=== PATIENT | female | born 2000 | race Caucasian/White ===

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

== ENCOUNTER 2019-01-03 19:17 | Emergency (ER) | payer BC, MEDICAID ==
[~2019-01-03] VITALS: Ht 162.6 cm; Wt 70.3 kg
[~2019-01-03 19:17] MED LIST changes: -CIPR-249 PO; -DICY10CA13 PO; -ZOFR4TAB16 PO
[2019-01-03 20:11] LABS: HEMATOCRIT 40.5 % (36.0-47.0); HEMOGLOBIN 13.4 g/dl (12.0-15.5); MEAN CORPUSCULAR HEMOGLOBIN 30.1 pg (27.0-33.0); MEAN CORPUSCULAR HGB CONC 33.1 g/dl (32.0-36.5); PLATELET COUNT, AUTOMATED 230 10^3/uL (150-450); RED BLOOD COUNT 4.45 10^6/uL (4.00-5.40); WHITE BLOOD COUNT 4.3 10^3/uL (4.0-10.0)
[2019-01-03 20:34] LABS: ALBUMIN 3.8 GM/DL (3.2-5.2); ALT/SGPT 18 U/L (12-78); BILIRUBIN,DIRECT < 0.1 MG/DL (0.0-0.2); BILIRUBIN,TOTAL 0.3 MG/DL (0.2-1.0); BLOOD UREA NITROGEN 9 MG/DL (7-18); CALCIUM LEVEL 8.7 MG/DL (8.5-10.1); CARBON DIOXIDE LEVEL 28 MEQ/L (21-32); CHLORIDE LEVEL 107 MEQ/L (98-107); CREATININE FOR GFR 0.86 MG/DL (0.55-1.30); GLUCOSE, FASTING 83 MG/DL (70-100); LIPASE 148 U/L (73-393); POTASSIUM SERUM 3.6 MEQ/L (3.5-5.1); SODIUM LEVEL 141 MEQ/L (136-145); TOTAL PROTEIN 7.4 GM/DL (6.4-8.2)
[2019-01-03 20:44] LABS: ATYPICAL LYMPH 5 % (0-5); BASOPHILS 1 % (0-4); EOSINOPHILS 5 % (0-5); LYMPHOCYTES 49 % (16-52); MONOCYTES 8 % (0-8); NEUTROPHILS 32 % (35-75); PLATELET ESTIMATE NORMAL (NORMAL)
[2019-01-03] MEDS ORDERED: ONDANSETRON 4MG/2ML VIAL (J2405) IV ONE (21:00)
[2019-01-03] MEDS ORDERED: NS 1,000 ML IV ONE (21:00)
[2019-01-03] MEDS ORDERED: DICYCLOMINE 10 MG CAP PO ONE (21:00)
[2019-01-03 23:46] VITALS: BP 103/52
[2019-01-03] MEDS ORDERED: ZOFR4TAB16 PO (23:53)
[2019-01-03] MEDS ORDERED: CIPR-249 PO (23:53)
[2019-01-03] MEDS ORDERED: DICY10CA13 PO (23:53)
[2019-01-04] MEDS ORDERED: CIPROFLOXACIN 500 MG TAB PO ONE
== END 2019-01-04 00:18 | disposition home or self-care (01) ==
LOC: M ED 19:17
DX: R10.84 Generalized abdominal pain (principal); R19.7 Diarrhea, unspecified; Z88.7 Allergy status to serum and vaccine
CPT/HCPCS: 80048; 80076; 81001; 83690; 84702; 85025; 96374; 99284; J2405

== ENCOUNTER → 2019-01-03 | Outpatient (REF) | payer BC, MEDICAID ==
[~2019-01-03] MED LIST: ACET-683 PO; CEFD300CAP PO; CIPR-249 PO; DICY10CA13 PO; ONDA4TAB6 PO; PREVTAB2 PO; ZOFR4TAB16 PO
[2019-01-03 19:53] LABS: BASO % 0.4 % (0.0-1.0); EOS # 0.2 10^3/uL (0.0-0.50); HEMATOCRIT 43.4 % (36.0-47.0); LYMPH # 1.5 10^3/uL (1.5-6.5); LYMPH % 28.2 % (24.0-44.0); MEAN CORPUSCULAR HEMOGLOBIN 29.9 pg (27.0-33.0); MEAN CORPUSCULAR HGB CONC 32.3 g/dl (32.0-36.5); MEAN CORPUSCULAR VOLUME 92.5 fl (80.0-96.0); MONO # 0.6 10^3/uL (0.0-0.8); MONO % 11.2 % (0.0-5.0); PLATELET COUNT, AUTOMATED 251 10^3/uL (150-450); RED BLOOD COUNT 4.69 10^6/uL (4.00-5.40); WHITE BLOOD COUNT 5.3 10^3/uL (4.0-10.0)
[2019-01-03 19:56] LABS: ALT/SGPT 18 U/L (12-78); AMYLASE 37 U/L (25-115); BILIRUBIN,TOTAL 0.4 MG/DL (0.2-1.0); BLOOD UREA NITROGEN 10 MG/DL (7-18); CARBON DIOXIDE LEVEL 29 MEQ/L (21-32); CHLORIDE LEVEL 107 MEQ/L (98-107); CREATININE FOR GFR 0.91 MG/DL (0.55-1.30); GLUCOSE, FASTING 90 MG/DL (70-100); LIPASE 122 U/L (73-393); POTASSIUM SERUM 4.2 MEQ/L (3.5-5.1); SODIUM LEVEL 140 MEQ/L (136-145); TOTAL PROTEIN 7.6 GM/DL (6.4-8.2)
== END ==
LOC: M LAB REF 19:14
PROVIDERS: ATTEND Physician Assistant Medical
DX: R10.9 Unspecified abdominal pain (principal)

== ENCOUNTER 2019-03-11 17:04 | Emergency (ER) | payer BC, MEDICAID ==
[~2019-03-11] VITALS: Ht 162.6 cm; Wt 73.2 kg
[~2019-03-11 17:04] MED LIST changes: +CIPR-249 PO; +DICY10CA13 PO; +ZOFR4TAB16 PO
[2019-03-11] MEDS ORDERED: MIRE1IUD (17:12)
--- NOTE | 2019-03-11 18:17 | REPVR ---
PROCEDURE INFORMATION: Exam: CT Head Without Contrast Exam date and time: 03/11/2019 6:01 PM Clinical history: 18 years old, female; Injury or trauma; Fall; Initial encounter; Blunt trauma (contusions or hematomas); Consciousness not specified; Additional info: Thrown off horse, cervical pain, + loc TECHNIQUE: Imaging protocol: Computed tomography of the head without contrast. Radiation optimization: All CT scans at this facility use at least one of these dose optimization techniques: automated exposure control; mA and/or kV adjustment per patient size (includes targeted exams where dose is matched to clinical indication); or iterative reconstruction. COMPARISON: CT Head without contrast 02/27/2018 7:40 AM FINDINGS: Brain: Normal. No hemorrhage. Unremarkable white matter. No mass effect. Ventricles: Normal. No ventriculomegaly. Bones/joints: Unremarkable. No acute fracture. Sinuses: Visualized sinuses are unremarkable. No fluid levels. Mastoid air cells: Visualized mastoid air cells are well aerated. Soft tissues: Unremarkable. IMPRESSION: No acute intracranial abnormality. Electronically signed by: Valente Hernandez On 03/11/2019 18:17:21 PM
--- NOTE | 2019-03-11 18:20 | REPVR ---
PROCEDURE INFORMATION: Exam: CT Cervical Spine Without Contrast Exam date and time: 03/11/2019 6:01 PM Clinical history: 18 years old, female; Injury or trauma; Fall; Initial encounter; Blunt trauma; Additional info: Thrown off horse, cervical pain TECHNIQUE: Imaging protocol: Computed tomography images of the cervical spine without contrast. Radiation optimization: All CT scans at this facility use at least one of these dose optimization techniques: automated exposure control; mA and/or kV adjustment per patient size (includes targeted exams where dose is matched to clinical indication); or iterative reconstruction. COMPARISON: No relevant prior studies available. FINDINGS: Vertebrae: Reversal of normal cervical lordosis which may be positional. Clinical correlation to exclude changes secondary to muscular spasm as suggested. Discs/Spinal canal/Neural foramina: No spinal stenosis. No neural foraminal narrowing. Soft tissues: See Vertebrae Finding. Otherwise unremarkable. Lungs: Lung apices are normal. IMPRESSION: 1. Reversal of normal cervical lordosis which may be positional. Clinical correlation to exclude changes secondary to muscular spasm as suggested. 2. Otherwise unremarkable. Electronically signed by: Valente Hernandez On 03/11/2019 18:20:38 PM
[2019-03-11] MEDS ORDERED: NS 1,000 ML IV ONE (19:15)
[2019-03-11] MEDS ORDERED: KETOROLAC 30 MG/ML VIAL (J1885) IV ONE (19:15)
[2019-03-11 19:21] LABS: HEMATOCRIT 42.8 % (36.0-47.0); MEAN CORPUSCULAR HEMOGLOBIN 30.1 pg (27.0-33.0); MEAN CORPUSCULAR HGB CONC 32.7 g/dl (32.0-36.5); PLATELET COUNT, AUTOMATED 286 10^3/uL (150-450); RED BLOOD COUNT 4.65 10^6/uL (4.00-5.40); WHITE BLOOD COUNT 11.9 10^3/uL (4.0-10.0)
[2019-03-11] MEDS ORDERED: ISOVUE-370 76% 100ML VIAL (Q9967) As Ordered ONE (20:11)
--- NOTE | 2019-03-11 20:37 | REPVR ---
PROCEDURE INFORMATION: Exam: CT Maxillofacial Without Contrast Exam date and time: 03/11/2019 8:22 PM Clinical history: 18 years old, female; Injury or trauma; Fall; Initial encounter; Blunt trauma (contusions or hematomas); Jaw; Right TECHNIQUE: Imaging protocol: Computed tomography images of the face without contrast. Radiation optimization: All CT scans at this facility use at least one of these dose optimization techniques: automated exposure control; mA and/or kV adjustment per patient size (includes targeted exams where dose is matched to clinical indication); or iterative reconstruction. COMPARISON: No relevant prior studies available. FINDINGS: Orbits: Orbits are normal. Globes are unremarkable. Sinuses: Mild inflammatory changes right maxillary sinus. Bones/joints: No acute fracture. Soft tissues: Unremarkable. IMPRESSION: No acute findings. Electronically signed by: Valente Hernandez On 03/11/2019 20:37:11 PM
--- NOTE | 2019-03-11 20:40 | REPVR ---
PROCEDURE INFORMATION: Exam: CT Abdomen And Pelvis With Contrast Exam date and time: 03/11/2019 8:22 PM Clinical history: 18 years old, female; Injury or trauma; Fall; Initial encounter; Blunt; Generalized TECHNIQUE: Imaging protocol: Computed tomography of the abdomen and pelvis with intravenous contrast. Radiation optimization: All CT scans at this facility use at least one of these dose optimization techniques: automated exposure control; mA and/or kV adjustment per patient size (includes targeted exams where dose is matched to clinical indication); or iterative reconstruction. Contrast material: ISO 370; Contrast volume: 100 ml; Contrast route: IV; COMPARISON: No relevant prior studies available. FINDINGS: Liver: There is a diffuse decrease in hepatic parenchymal density, consistent with fatty infiltration. Gallbladder and bile ducts: Normal. No calcified stones. No ductal dilation. Pancreas: Normal. No ductal dilation. Spleen: Normal. No splenomegaly. Adrenals: Normal. No mass. Kidneys and ureters: Normal. No hydronephrosis. Stomach and bowel: There is increased feces throughout the colon consistent with constipation. Appendix: No evidence of appendicitis. Intraperitoneal space: Unremarkable. No free air. No significant fluid collection. Vasculature: Unremarkable. No abdominal aortic aneurysm. Lymph nodes: Unremarkable. No enlarged lymph nodes. Bladder: Unremarkable as visualized. Reproductive: Unremarkable as visualized. Bones/joints: Unremarkable. No acute fracture. Soft tissues: Unremarkable. IMPRESSION: 1. There is a diffuse decrease in hepatic parenchymal density, consistent with fatty infiltration. 2. There is increased feces throughout the colon consistent with constipation. Electronically signed by: Valente Hernandez On 03/11/2019 20:40:16 PM
[2019-03-11] MEDS ORDERED: ZOFR4TAB16 PO (22:11)
[2019-03-11] MEDS ORDERED: IBUP-1022 PO (22:11)
--- NOTE | 2019-03-11 22:14 | REPVR ---
PROCEDURE INFORMATION: Exam: CT Chest With Contrast Exam date and time: 03/11/19 (8:29pm) Clinical history: 18 year old female with chest pain. Trauma. TECHNIQUE: Imaging protocol: Computed tomography of the chest with intravenous contrast. Radiation optimization: All CT scans at this facility use at least one of these dose optimization techniques: automated exposure control; mA and/or kV adjustment per patient size (includes targeted exams where dose is matched to clinical indication); or iterative reconstruction. Contrast material: Iso 370 Contrast volume: 100 ml Contrast route: IV COMPARISON: Portable CXR of 02/27/18 FINDINGS: Lungs: Unremarkable. No consolidation. No masses. Pleural space: Unremarkable. No pneumothorax. No pleural effusions. Heart: Unremarkable. No cardiomegaly. No pericardial effusion. Aorta: Unremarkable. No aortic aneurysm. Lymph nodes: Unremarkable. No enlarged lymph nodes. Bones/joints: Unremarkable. No acute fracture. Soft tissues: Unremarkable. IMPRESSION: No acute findings. Electronically signed by: Carmen Lugo On 03/11/2019 22:14:13 PM
[2019-03-11 22:25] VITALS: BP 131/69
== END 2019-03-11 22:28 | disposition home or self-care (01) ==
LOC: M ED 17:04
DX: S09.90XA Unspecified injury of head, initial encounter (principal); S06.0X9A Concussion with loss of consciousness of unspecified duration, initial encounter; V80.010A Animal-rider injured by fall from or being thrown from horse in noncollision accident, initial encounter; Y92.828 Other wilderness area as the place of occurrence of the external cause; Y93.52 Activity, horseback riding; Y99.9 Unspecified external cause status; Z79.3 Long term (current) use of hormonal contraceptives; Z88.7 Allergy status to serum and vaccine; Z88.8 Allergy status to other drugs, medicaments and biological substances
CPT/HCPCS: 70450; 70486; 71260; 72125; 74177; 80047; 84702; 85027; 86850; 86900; 86901; 96361; 96374; 99284; J1885; Q9967

== ENCOUNTER 2019-04-10 15:18 | Emergency (ER) | payer BC, MEDICAID ==
[~2019-04-10] VITALS: Ht 162.6 cm; Wt 73.5 kg
[2019-04-10 15:18] VITALS: BP 138/84
[~2019-04-10 15:18] MED LIST changes: +IBUP-1022 PO; +MIRE1IUD
== END 2019-04-10 16:29 | disposition left against medical advice (07) ==
LOC: M ED 15:18
DX: Z53.21 Procedure and treatment not carried out due to patient leaving prior to being seen by health care provider (principal)

== ENCOUNTER 2019-10-01 04:52 | Emergency (ER) | payer BC, MEDICAID ==
[~2019-10-01] VITALS: Ht 162.6 cm; Wt 79.2 kg
[2019-10-01] MEDS ORDERED: ACETAMINOPHEN 500 MG TAB PO ONE (06:30)
[2019-10-01 07:12] LABS: BASO % 0.3 % (0.0-1.0); EOS % 0.1 % (0.0-3.0); HEMATOCRIT 42.3 % (36.0-47.0); LYMPH # 0.9 10^3/uL (1.5-5.0); LYMPH % 5.7 % (24.0-44.0); MEAN CORPUSCULAR HEMOGLOBIN 29.8 pg (27.0-33.0); MEAN CORPUSCULAR HGB CONC 33.1 g/dl (32.0-36.5); MONO % 6.3 % (0.0-5.0); NEUTROPHILS # 13.2 10^3/uL (1.5-8.5); NEUTROPHILS % 87.1 % (36.0-66.0); PLATELET COUNT, AUTOMATED 237 10^3/uL (150-450); WHITE BLOOD COUNT 15.2 10^3/uL (4.0-10.0)
--- NOTE | 2019-10-01 07:24 | ECGEPIP ---
[facility] - ED Test Date: 2019-10-01 Pat Name: PHILIPPE REAVES Department: Room: - Gender: Female Household Coordinator: LR : 2000 Requested By: MATTHEW Burrows PA-C Order Number: [id number] Reading MD: Zackary Gamez Measurements Intervals [place] Rate: 100 P: 70 NH: 132 QRS: 82 QRSD: 82 T: 59 QT: 304 QTc: 393 Interpretive Statements SINUS TACHYCARDIA POSSIBLE LEFT ATRIAL ENLARGEMENT SIMILAR TO 02/27/18 Electronically Signed on 10-01-2019 7:23:56 EDT by Zackary Gamez
[2019-10-01 07:35] LABS: HCG, SERUM QUALITATIVE NEGATIVE (NEGATIVE); MONO REFLEX EBV COMP NEGATIVE (NEGATIVE)
[2019-10-01 07:37] LABS: ALT/SGPT 24 U/L (12-78); BILIRUBIN,TOTAL 0.8 MG/DL (0.2-1.0); BLOOD UREA NITROGEN 8 MG/DL (7-18); CALCIUM LEVEL 9.6 MG/DL (8.5-10.1); CARBON DIOXIDE LEVEL 26 MEQ/L (21-32); CHLORIDE LEVEL 98 MEQ/L (98-107); CK-MB VALUE MASS < 1.0 NG/ML (<3.6); CPK CREATINE PHOSPHOKINASE 48 U/L (26-192); CREATININE FOR GFR 0.95 MG/DL (0.55-1.30); GLUCOSE, FASTING 104 MG/DL (70-100); LDH LACTATE DEHYDROGENASE 143 U/L (84-246); MB/CK RELATIVE INDEX 2.08 (< OR =4); POTASSIUM SERUM 3.7 MEQ/L (3.5-5.1); SODIUM LEVEL 131 MEQ/L (136-145); TOTAL PROTEIN 8.5 GM/DL (6.4-8.2); TROPONIN I < 0.02 NG/ML (< 0.10)
[2019-10-01] MEDS ORDERED: NS 1,000 ML IV ONE (08:15)
[2019-10-01 08:28] LABS: FERRITIN 45 NG/ML (8-252)
[2019-10-01 08:41] VITALS: BP 129/67
[2019-10-01] MEDS ORDERED: NS 1,380 ML in IV 1 EA IV ONE (09:00)
--- NOTE | 2019-10-01 10:26 | REP ---
CHEST: REASON: Coronavirus workup. COMPARISON: No priors. The technique utilized in obtaining the radiograph has magnified the cardiac silhouette and accentuated the interstitial markings. FINDINGS: The superior mediastinal structures are midline. The cardiac silhouette is unremarkable in size, shape, and position. The diaphragmatic surfaces of the lungs are regular, and the costophrenic angles are clear. The pulmonary garces are clear. The imaged osseous structures are intact. IMPRESSION: There is no acute cardiopulmonary disease. Electronically Signed by Carlos Nava DO 10/01/2019 02:00 P
[2019-10-02 14:07] LABS: EBV VIRAL CAPSID AG IgM <36.0 U/mL (0.0-35.9)
== END 2019-10-01 09:48 | disposition home or self-care (01) ==
LOC: M ED 04:52
DX: B34.0 Adenovirus infection, unspecified (principal); J02.0 Streptococcal pharyngitis; D72.829 Elevated white blood cell count, unspecified; R51 Headache; R50.9 Fever, unspecified
CPT/HCPCS: 71045; 80053; 81001; 82550; 82553; 82728; 83605; 83615; 84484; 84703; 85025; 85379; 86308; 86664; 86665; 87040; 87486; 87581; 87633; 87798; 87880; 93005; 96360; 99284; U0002

== ENCOUNTER 2020-05-22 15:48 | Emergency (ER) | payer BC, MEDICAID ==
[~2020-05-22] VITALS: Ht 162.6 cm; Wt 83.2 kg
[2020-05-22 17:55] LABS: HCG, SERUM QUALITATIVE NEGATIVE (NEGATIVE)
--- NOTE | 2020-05-22 21:20 | REPVR ---
PROCEDURE INFORMATION: Exam: US Non-obstetric Pelvis; Complete Exam date and time: 05/22/20 (7:42pm) Age: 19 years old Clinical indication: Pelvic pain. Had IUD placed in Mar. -- constant pain, bleeding, and nausea since placement. Check IUD placement. TECHNIQUE: Imaging protocol: Transabdominal and transvaginal pelvic non-obstetric ultrasound. Complete examination. Real time ultrasound with image documentation. COMPARISON: CT ABDOMEN PELVIS of 03/11/19 FINDINGS: The LMP is reported to be: approx. 03/28/20 The uterus is anteverted, measuring 6.9 x 2.8 x 4.5cm in dimensions. The uterus may be subseptated (partially septated). No uterine mass is seen. The endometrium is thin (3.4 mm thickness). IUD in place, in the central portion of the uterus. The right ovary measures 3.4 x 2.6 x 3.2 cm in size. The left ovary measures 2.9 x 2.3 x 2.2 cm in size. There is no evidence of ovarian torsion on Doppler evaluation. No free pelvic fluid is seen. No solid adnexal masses. IMPRESSION: No acute pathology. No fluid collections. The uterus may be subseptated (partially septated). IUD in place, in the central portion of the uterus. The ovaries are unremarkable, with no evidence of torsion. Electronically signed by: Carmen Lugo On 05/22/2020 21:20:55 PM
[2020-05-22 21:40] LABS: BASO # 0.1 10^3/uL (0.0-0.2); BASO % 0.6 % (0.0-1.0); EOS # 0.4 10^3/uL (0.0-0.5); EOS % 3.6 % (0.0-3.0); HEMATOCRIT 39.6 % (36.0-47.0); HEMOGLOBIN 13.1 g/dl (12.0-15.5); LYMPH # 2.9 10^3/uL (1.5-5.0); LYMPH % 29.5 % (24.0-44.0); MEAN CORPUSCULAR HGB CONC 33.1 g/dl (32.0-36.5); MEAN CORPUSCULAR VOLUME 90.8 fl (80.0-96.0); MONO # 0.7 10^3/uL (0.0-0.8); MONO % 7.1 % (0.0-5.0); NEUTROPHILS # 5.7 10^3/uL (1.5-8.5); PLATELET COUNT, AUTOMATED 276 10^3/uL (150-450); RED BLOOD COUNT 4.36 10^6/uL (4.00-5.40); WHITE BLOOD COUNT 9.7 10^3/uL (4.0-10.0)
[2020-05-22 21:58] VITALS: BP 118/54
== END 2020-05-22 22:00 | disposition home or self-care (01) ==
LOC: M ED 15:48
DX: N93.9 Abnormal uterine and vaginal bleeding, unspecified (principal); Z30.431 Encounter for routine checking of intrauterine contraceptive device; Z88.7 Allergy status to serum and vaccine

== ENCOUNTER 2021-05-10 13:46 | Emergency (ER) | payer BC, MEDICAID ==
[~2021-05-10] VITALS: Ht 162.6 cm; Wt 80.8 kg
[2021-05-10] MEDS ORDERED: VIEN1TAB PO (13:54)
--- OUTSIDE RECORDS SUMMARY | 2021-05-10 13:59 | CCD ---
Author Author [facility] Address Unknown Phone Unavailable Care Team Providers Care Appraisal Coordinator Name Role Phone Angel Aditi VICE PRESIDENT NETWORK DEVELOPMENT Unavailable Unavailable Angel, Aditi VICE PRESIDENT NETWORK DEVELOPMENT Unavailable Unavailable Angel, Aditi VICE PRESIDENT NETWORK DEVELOPMENT Unavailable Unavailable Angel, Aditi VICE PRESIDENT NETWORK DEVELOPMENT Unavailable Unavailable Angel, Aditi VICE PRESIDENT NETWORK DEVELOPMENT Unavailable Unavailable Angel, Aditi VICE PRESIDENT NETWORK DEVELOPMENT Unavailable Unavailable Angel, Aditi VICE PRESIDENT NETWORK DEVELOPMENT Unavailable Unavailable Angel, Aditi VICE PRESIDENT NETWORK DEVELOPMENT Unavailable Unavailable Angel, Aditi VICE PRESIDENT NETWORK DEVELOPMENT Unavailable Unavailable Angel, Aditi VICE PRESIDENT NETWORK DEVELOPMENT Unavailable Unavailable Angel, Aditi VICE PRESIDENT NETWORK DEVELOPMENT Unavailable Unavailable Angel, Aditi VICE PRESIDENT NETWORK DEVELOPMENT Unavailable Unavailable Angel, Aditi VICE PRESIDENT NETWORK DEVELOPMENT Unavailable Unavailable NO, PCP Unavailable Unavailable NELSON PHAM Unavailable Unavailable BradRenetta amador [facility] Unavailable Unavailable Re-disclosure Warning The records that you are about to access may contain information from federally-assisted alcohol or drug abuse programs. If such information is present, then the following federally mandated warning applies: This information has been disclosed to you from records protected by federal confidentiality rules (42 CFR part 2). The federal rules prohibit you from making any further disclosure of this information unless further disclosure is expressly permitted by the written consent of the person to whom it pertains or as otherwise permitted by 42 CFR part 2. A general authorization for the release of medical or other information is NOT sufficient for this purpose. The Federal rules restrict any use of the information to criminally investigate or prosecute any alcohol or drug abuse patient.The records that you are about to access may contain highly sensitive health information, the redisclosure of which is protected by Article 27-F of the [facility] Public Health law. If you continue you may have access to information: Regarding HIV / AIDS; Provided by facilities licensed or operated by the [facility] Office of Mental Health; or Provided by the [facility] Office for People With Developmental Disabilities. If such information is present, then the following [facility] mandated warning applies: This information has been disclosed to you from confidential records which are protected by state law. State law prohibits you from making any further disclosure of this information without the specific written consent of the person to whom it pertains, or as otherwise permitted by law. Any unauthorized further disclosure in violation of state law may result in a fine or intermediate sentence or both. A general authorization for the release of medical or other information is NOT sufficient authorization for further disc losure. Allergies and Adverse Reactions Type Description Substance Reaction Status Data Source(s ) Allergy to substance No Known Allergies No known allergies (situation ) [facility] ([facility]) Allergy to substance No Known Allergies No known allergies (situation ) [facility] ([facility]) Family History Family Member Name Family Member Gender Family Member Status Date o f Status Description Data Source(s) Unknown Unknown Problem [facility] ([facility] Unknown Unknown Problem [facility] ([facility] Encounters Encounter Providers Location Date Indications Data Source(s ) <td ID="encounterTypeDescriptionID0">[facility]td[facility]</td><td>02/06/2021</td><td>1:11PM</td><td>1:46PM</td><td></td>Unknown Attender: Bianca Salinas [facility] 02/06/2021 01:11:00 PM EDT - 02/06/2021 01:46:00 PM EDT JADE ([facility]) Unknown<td ID="encounterTypeDescriptionI D0">[facility]</td><[facility]</td><td>07/30/2020</td><td>2:12PM</td><td>3:06PM</td><td></td> Attender: Bianca Salinas [facility] 07/30/2020 02:12:00 PM EST - 07/30/2020 03:06:00 PM EST JADE ([facility]) Outpatient Attender: Aditi ryan 07/04/2020 01:45:00 PM EST [facility] ([facility] Outpatient Attender: NELSON PHAMConsultant: PCP NO 04/30/2020 07:10:28 PM EST - 04/30/2020 03:01:00 PM EST [facility]. Medications Medication Brand Name Start Date Product Form Dose Route Admi nistrative Instructions Pharmacy Instructions Status Indications Reaction Description Data Source(s) Lorraine 28 Day Kit 0.1-20 mg-mcg LEVONORGESTREL/ETHIN.ESTRADI OL 04/23/2021 12:00:00 AM EST tablet 84 TAKE ONE TABLET BY MOUTH EVERY DAY TAKE ONE TABLET BY MOUTH EVERY DAY SOLD: 04/24/2021 [facility] 30-600 mg 07/04/2020 12:00:00 AM EST tablet extended release 12 hr 14 TAKE ONE TABLET BY MOUTH TWICE A DAY FOR COUGH TAKE ONE TABLET BY MOUTH TWICE A DAY FOR COUGH SOLD: 07/04/2020 [facility] 12 HR Dextromethorphan Hydrobromide 30 M G / Guaifenesin 600 MG Extended Release Oral Tablet Mucinex DM 07/04/2020 12:00:00 AM EST ORAL active [facility] ([facility]) No Active Medications 01/13/2020 12:00:00 AM EDT completed [facility] ([facility]) Insurance Providers Payer name Policy type / Coverage type Policy ID Covered green party ID Covered green party's relationship to solares Policy Solares Plan Information [facility] [id number] Family Dependent [id number] [place] [employer] [id number] [id number] Family Dependent [id number] [place] [employer] [facility] .[id number] Family Dependent [facility] [employer] [id number] Family Dependent [id number] [facility] Blue Child HLTH Plus Health Maintenance Organization (HMO) B C/BS Chip [id number] [facility] Blue Child HLTH Plus Health Maintenance Organization (HMO) Z [id number] .[id number] o Blue Child HLTH Plus Health Maintenance Organization (HMO) Z [id number] o Blue Child HLTH Plus Health Maintenance Organization (HMO) Z [id number] [facility] Blue Options Commercial [id number] 2..[id number] Family Dependent [id number] Hmo Blue Options Commercial [id number] 2..[id number] Family Dependent [id number] Hmo Blue Options Commercial Hmo Blue Options ..[id number] Family Dependent Hmo Blue Options Hmo Blue Options Commercial [id number] ..[id number] Family Dependent [id number] Medicaid Dental S [id number] S [id number] Medicaid Dental S [id number] S [id number] U H [facility] Community Plan Commercial [id number] [id number] Family Dependent [id number] U H C Community Plan Commercial [id number] ..[id number] Family Dependent [id number] U H C Community Plan Commercial .[id number]. [id number] Family Dependent U H C Community Plan Commercial [id number] .[id number] Family Dependent [id number] D Managed Care [facility] P [id number] S [id number] Medicaid Dental S [id number] S [id number] Medicaid Dental S [id number] S EU08 575C Blue Shield Commercial BC BS 2..[id number] Family Dependent BC BS Blue Shield Commercial [id number] 2..[id number] [id number] Family Dependent [id number] Medicaid Medicaid [id number] 2..[id number] [id number] Family Dependent [id number] Medicaid Medicaid [id number] 2.16.840.1.144974.3.227.99.2 [id number] Family Dependent [id number] Medicaid Medicaid [id number] 2.16.840.1.194623.3.227.99.2 [id number] Family Dependent [id number] Medicaid Medicaid Medicaid [id number]9.2 [id number] Family Dependent Medicaid [place] I [id number] Self [id number] [employer] Commercial [id number] Self [employer] Commercial [id number] [id number] Self [id number] [place] Commercial [id number] 2.16.840.1.544249.3.227.99.2 [id number] Self [id number] [place] [employer] Commercial [id number] 2.16.840.1.737403.3.227.99.2 [id number] Self [id number] [place] [employer] Commercial [place] 2.16.840.1.321280.3.227.99.2 [id number] Self [place] Care Medicaid Dental P [id number] S EU08 574E [facility] O [id number] S [id number] [facility] Blue Cross Commercial [id number] Family Dependent BCBS [place] PPO 302/[id number] [id number] Medicaid [place] Medigap Part B [id number] Self BS [facility] [place] Commercial [id number] Family Dependent D Managed Care [facility] O [id number] S [id number] [facility] COMMUNITY PLAN [facility] [id number] SP [id number] [place] [id number] SP [id number] E [id number] BCBS FEDERAL EMPLOYEE PROGRAM [id number] Medicaid of [place] Other 0 [id number] Self 0 [place]BS of [place] Other 0 [id number] Family Depend ent Arianna Robins 0 Medicaid of [place] Other 0 [id number] Self 0 MEDICAID M [id number] S [id number] BC BS [place] FEDERAL B [id number] C [id number] EMEDNY [id number] SP [id number] MEDICAID -O/P EMERGENCY ROOM [id number] BLUE CROSS BLUE SHIELD FEDERAL -O/P [id number] BCBS Federal P [id number] S [id number] MEDICAID [id number] SP [id number] BCBS Federal Plan Commercial [id number] Family Dependent [id number] BCBS Federal Plan Commercial [id number] Family Dependent [id number] BCBS Federal Plan Commercial [id number] .[id number] Family Dependent [id number] D BCBS Federal Dental S [id number] S [id number] [place] Medigap Part B [id number] 2.0.1.801177.3.227.99 .[id number] Self [id number] BS Fep Commercial [id number] [id number] [id number] Family Dependent [id number] [place] Medigap Part B [id number] .[id number] Self [id number] BS Fep Commercial [id number] [id number] Family Dependent [id number] [place] Medigap Part B [id number] .[id number] Self [id number] BS Fep Commercial [id number]9.1 [id number] Family Dependent [id number] BCBS Federal Plan Commercial [id number] .[id number] Family Dependent [id number] [facility] Commercial [id number] [place] [id number] SP [id number] 200 [facility] Commercial [id number] [place] Medicaid [id number] 2.16.84[id number]. 0 Self [id number] BS Fep Commercial [id number] [id number] Family Dependent [id number] [facility] Commercial [id number] .[id number] Self [id number] [facility] [place] O [id number] C [id number] D [facility] O [id number] S [id number] MEDICAID S [id number] S [id number] [facility] P [id number] C [id number] D [facility] P [id number] S [id number] Problems, Conditions, and Diagnoses Code Display Name Description Problem Type Effective Dates Data Source(s) [id number] Encounter for routine checking of intrau terine contraceptive device Encounter for routine checking of intrauterine contraceptive device Diagnosis 04/30/2020 02:01:00 PM [facility] R102 Pelvic and perineal pain Pelvic and perineal pain Diag nosis 04/30/2020 02:01:00 PM [facility] [id number] No Active Problems No Active Problems Problem 12:00:00 AM [facility]) [id number] No Active Problems No Active Problems Problem 12:00:00 AM EST JADE ([facility]) Surgeries/Procedures Procedure Description Date Indications Data Source(s) Clinical summary transmitted to agustina roman provider electronically with reasonable certainty of receipt or receiving provider electronically through [facility] 02/06/2021 12:00:00 AM EDT - 02/06/2021 12:00:00 AM EDT JADE ([facility]) Transition in care medication list update 02/06/2021 12:00:00 AM EDT - 02/06/2021 12:00:00 AM EDT JADE ([facility]) Prophylaxis Adult Prophylaxis Adult 02/06/2021 12:00:00 AM EDT JADE ([facility]) Oral Hygiene/Arun Inst Oral Hygiene/Arun Inst 02/06/2021 12:00:00 AM EDT JADE ([facility]) Nutritional Counseling Nutritional Counseling 02/06/2021 12:00:00 A M EDT JADE ([facility]) Prophylaxis Adult Prophylaxis Adult 07/30/2020 12:00:00 AM EST JADE ([facility]) Nutritional Counseling Nutritional Counseling 07/30/2020 12:00:00 A M EST JADE ([facility]) Oral Hygiene/Arun Inst Oral Hygiene/Arun Inst 07/30/2020 12:00:00 AM EST JADE ([facility]) Periodontal Charting Periodontal Charting 07/30/2020 12:00:00 AM ES T JAED ([facility]) Bitewing - 4 radiographic images [place]wing - 4 radiographic i mages 07/30/2020 12:00:00 AM EST JADE ([facility]) Results ID Date Data Source [id number] 02/12/2021 12:00:00 AM EDT [facility] Name Value Range Interpretation Code Description Data Jordyn rce(s) Supporting Document(s) PCR NEGATIVE [facility] This lab was ordered by [facility] and reported by [facility]. ID Date Data Source [id number] 07/04/2020 12:00:00 AM EST [facility] Name Value Range Interpretation Code Description Data Jordyn rce(s) Supporting Document(s) SARS coronavirus 2 Ag Negative [facility] This lab was ordered by [facility] and reported by [facility]. ID Date Data Source [id number] 05/05/2020 10:54:00 AM EST [facility] [address] [place] [address] PHONE: [phone] FAX: [phone] Name .................. : JEAN PAUL Moore Acct Number.................. : [id number] ROOM. ................. : MR Number ................... : [id number] Stay type ............. : O/P Discharge Date......... ... : Admit Date ......... : Admit Phys .................... : GREEN JENNIFER Date of ....... : 2000 Family Phys ................... : NO PCP Phone .................. : [phone] Age ................................ : 19 Film# .................. .:[id number] Sex ................................. : F Unsigned transcriptions are preliminary reports and do not represent a medical or legal document PELVIC [id number] COMPLETE:04/30/20 20:22 ADB [id number] (REASON FOR PELVIS: MIRENA IN PLACE PELVIC ULTRASOUND: INDICATION: Mirena in place. FINDINGS: The uterus measures 6.4 x 2.9 x 4.3 cm. The endometrial stripe is minimally visualized. There is an IUD within the endometrial canal which appears to be in good position. The bilateral ovaries are sonographically normal. Evaluation of the ovaries is slightly limited due to lack of bladder filling. IMPRESSION: IUD appears to be in good position. Electronically Reviewed and Signed By Papito Hoffman M.D. , 05/05/20 10:54, [place] Transcribe Initials: ALEXIS , Transcribe Date: 04/30/20 20:30, Dictation Date: Copy for: ANKIT DAMON Copy for: Yamileth [facility] Page 1 of 1 Name Value Range Interpretation Code Description Data Jordyn rce(s) Supporting Document(s) Procedure Social History Code Duration Value Status Description Data Source(s ) Smoking 02/06/2021 01:15:00 PM EDT Never smoked tobacco (findi ng) completed Never smoked tobacco (finding) [facility] ([facility]) Smoking 07/30/2020 03:27:40 PM EST Never smoked tobacco (findi ng) completed Never smoked tobacco (finding) [facility] ([facility]) Vital Signs ID Date Data Source UNK Name Value Range Interpretation Code Description Data Source(s) Respiratory rate 16 /min 16 /min [facility] ( [facility]) Heart rate 78 /min 78 /min [facility] ([facility]) Oxygen saturation in Arterial blood by Pulse oximetry 99 % 99 % [facility] ([facility]) Body temperature 98.6 [degF] 98.6 [degF] [facility] ([facility]) Body weight 195.00 [lb_av] 195.00 [lb_av] MEDEN T ([facility]) Body height 64 [in_i] 64 [in_i] [facility] ([facility]) 5'4" Body mass index (BMI) [Ratio] 33.5 kg/m2 33.5 k g/m2 [facility] ([facility]) Systolic blood pressure 110 mm[Hg] 110 mm[Hg] [facility] Diastolic blood pressure 74 mm[Hg] 74 mm[Hg] [facility] ([facility])
--- OUTSIDE RECORDS SUMMARY | 2021-05-10 15:37 | CCD ---
Author Author [facility] Address Unknown Phone Unavailable Care Team Providers Care Lumber Bearer Name Role Phone Angel Aditi BASE MANAGER Unavailable Unavailable Angel, Aditi BASE MANAGER Unavailable Unavailable Angel, Aditi BASE MANAGER Unavailable Unavailable Angel, Aditi BASE MANAGER Unavailable Unavailable Angel, Aditi BASE MANAGER Unavailable Unavailable Angel, Aditi BASE MANAGER Unavailable Unavailable Angel, Aditi BASE MANAGER Unavailable Unavailable Angel, Aditi BASE MANAGER Unavailable Unavailable Angel, Aditi BASE MANAGER Unavailable Unavailable Angel, Aditi BASE MANAGER Unavailable Unavailable Angel, Aditi BASE MANAGER Unavailable Unavailable Angel, Aditi BASE MANAGER Unavailable Unavailable Angel, Aditi BASE MANAGER Unavailable Unavailable NO, PCP Unavailable Unavailable NELSON PHAM Unavailable Unavailable BradRenetta amador [facility] Unavailable Unavailable Re-disclosure Warning The records that [...] is protected by Article 27-F of the [facility] Public Health law. If you continue you may have access to information: Regarding HIV / AIDS; Provided by facilities licensed or operated by the [facility] Office of Mental Health; or Provided by the [facility] Office for People With Developmental Disabilities. If such information is present, then the following [facility] mandated warning applies: This information [...] law may result in a fine or fci sentence or both. A general authorization for [...] Unknown Unknown Problem MEDENT ([facility] [employer] hip[employer]) Unknown Unknown Problem [facility] ([facility] [employer] [employer]) Encounters Encounter Providers Location Date Indications Data Source(s ) <td ID="encounterTypeDescriptionID0">[facility]</td><[facility]</td><td>02/06/2021</td><td>1:11PM</td><td>1:46PM</td><td></td>Unknown Attender: Bianca Salinas [facility] 02/06/2021 01:11:00 PM EDT - 02/06/2021 01:46:00 PM EDT [facility] ([facility]) <td ID="encounterTypeDescriptionID0">H A dult Prophy</td><[facility]td[facility]</td><td>07/30/2020</td><td>2:12PM</td><td>3:06PM</td><td></td>Unknown Attender: Bianca Salinas [facility] 07/30/2020 02:12:00 PM EST - 07/30/2020 03:06:00 PM EST [facility] ([facility]) Outpatient Attender: Aditi ryan 07/04/2020 01:45:00 PM EST [facility] ([facility] Outpatient Attender: NELSON PHAMConsultant: PCP NO 04/30/2020 07:10:28 PM EST - 04/30/2020 03:01:00 PM EST [facility]. Medications Medication Brand [...] 07/04/2020 12:00:00 AM EST ORAL active [facility] ([facility], [facility]) No Active Medications 01/13/2020 12:00:00 AM EDT completed MED[facility] ([facility], [facility]) Insurance Providers Payer name Policy type / Coverage type Policy ID Covered democrat ID Covered democrat's relationship to solares Policy Solares Plan Information [facility] [employer] [id number] Family Dependent [id number] [facility] [employer] [id number] Family Dependent [id number] [facility] 2..[id number] Family Dependent [facility] [id number] ..[id number] Family Dependent [id number] o Blue Child HLTH Plus Health Maintenance Organization (HMO) B C/BS Chip 2..[id number] [facility] Child HLTH Plus Health Maintenance Organization (HMO) Z [id number] ..[id number] o Blue Child HLTH Plus Health Maintenance Organization (HMO) Z [id number] [id number] o Blue Child HLTH Plus Health Maintenance Organization (HMO) Z [id number] [id number] Hmo Blue Options Commercial [id number] 2..[id number] Family Dependent [id number] Hmo Blue Options Commercial [id number] 2..[id number] Family Dependent [id number] Hmo Blue Options Commercial Hmo Blue Options ..[id number] Family Dependent Hmo Blue Options Hmo Blue Options Commercial [id number] ..[id number] Family Dependent [id number] Medicaid Dental S [id number] S [id number] 575C Medicaid Dental S [id number] S EU08 [id number] [facility] H [facility] Community Plan Commercial [id number] 2..[id number] Family Dependent [id number] U H C Community Plan Commercial [id number] .[id number] Family Dependent [id number] U H C Community Plan Commercial .[id number]. [id number] Family Dependent U H C Community Plan Commercial [id number] .[id number] Family Dependent [id number] D Managed Care [facility] P [id number] S [id number] Medicaid Dental S [id number] S [id number] Medicaid Dental S [id number] S EU08 575C Blue Shield Commercial BC BS ..1.084354.3.227.99.2 [id number] Family Dependent BC BS Blue Shield Commercial [id number] 2..1.644793.3.227.99.2 [id number] Family Dependent [id number] Medicaid Medicaid [id number] 2..1.289493.3.227.99.2 8.9453.68547 Family Dependent [id number] Medicaid Medicaid [id number] 2.16.840.1.549364.3.227.99.2 [id number] Family Dependent [id number] Medicaid Medicaid [id number] 2.16.840.1.200028.3.227.99.2 [id number] Family Dependent [id number] Medicaid Medicaid Medicaid 2.16.840.1.338795.3.227.99.2 [id number] Family Dependent Medicaid [place] I [id number] Self [id number] [employer] Commercial [id number] Self [employer] Commercial [id number]9.2 [id number] Self [id number] [employer] Commercial [id number] 2.16.840.1.240436.3.227.99.2 8.9453.36635 Self [id number] [employer] Commercial [id number] 2.16.840.1.316734.3.227.99.2 [id number] Self [id number] [employer] Commercial [employer]line Care 2.16.840.1.099406.3.227.99.2 [id number] Self Doyline Care Medicaid Dental P [id number] S EU08 574E [facility] O [id number] S [id number] [facility] [employer] Commercial [id number] Family Dependent BCBS [place] PPO 302/[id number] Medicaid [place] Medigap Part B [id number] Self BS Of [facility] Commercial [id number] Family Dependent D Managed Care [facility] O [id number] S [id number] [facility] PLAN [facility] [id number] SP [id number] [place] [id number] SP [id number] E [id number] BCBS FEDERAL EMPLOYEE PROGRAM [id number] [facility] [id number] Medicaid [facility] Other 0 [id number] Self 0 BCBS of [place] Other 0 [id number] Family Depend ent Arianna Robins 0 [place] Other 0 [id number] Self 0 MEDICAID M [id number] S [id number] BC BS [place] FEDERAL B [id number] C [id number] [place] [id number] SP [id number] MEDICAID -O/P EMERGENCY ROOM [id number] BLUE CROSS BLUE SHIELD FEDERAL -O/P [id number] BCBS Federal P [id number] S [id number] MEDICAID [id number] SP [id number] BCBS Federal Plan Commercial [id number] Family Dependent [id number] BCBS Federal Plan Commercial [id number] Family Dependent [id number] BCBS Federal Plan Commercial [id number] [id number] .[id number] Family Dependent [id number] D BCBS Federal Dental S [id number] S [id number] Medicaid [place] Medigap Part B [id number] 2.16840.1.820040.3.227.99 .1629.13755.0 Self [id number] BS Fep Commercial [id number] 2.16840.1.021163.3.227.99.1 [id number] Family Dependent [id number] [place] Medigap Part B [id number] 2.16840.1.330887.3.227.99 .1629.60745.0 Self [id number] BS Fep Commercial [id number] 2.16840.1.758292.3.227.99.1 [id number] Family Dependent [id number] [place] Medigap Part B [id number] 2.16840.1.550232.3.227.99 .[id number] Self [id number] BS Fep Commercial [id number] 2.16.840.1.046954.3.227.99.1 [id number] Family Dependent [id number] BCBS Federal Plan Commercial [id number] 2.16.840.1.534548.3.227 .[id number] Family Dependent [id number] [facility] Commercial [id number] [id number] [place] [id number] SP [id number] 200 Federal [facility] Commercial [id number] 2.16.840.[id number] [id number] Medicaid [place] [id number] 2.16.840.1.947054.3.227.99.1629.35188. 0 Self [id number] BS Fep Commercial [id number] 2.16.840.1.252313.3.227.99.1 [id number] Family Dependent [id number] BCBS Federal Plan Commercial [id number] 2.16.840.1.310416.3.227 .[id number] Self [id number] [place] [facility] [place] O [id number] C [id number] D [facility] O [id number] S [id number] MEDICAID S [id number] S [id number] [facility] P [id number] C [id number] D [facility] P [id number] S [id number] Problems, Conditions, and Diagnoses Code Display Name Description Problem Type Effective Dates Data Source(s) J74478 Encounter for routine checking of intrau terine contraceptive device Encounter for routine checking of intrauterine contraceptive device Diagnosis 04/30/2020 02:01:00 PM [facility] R102 Pelvic and perineal pain Pelvic and perineal pain Diag nosis 04/30/2020 02:01:00 PM [facility] [id number] No Active Problems No Active Problems Problem 12:00:00 AM [facility]) [id number] No Active Problems No Active Problems Problem 12:00:00 AM EST [facility] ([facility]) Surgeries/Procedures Procedure Description Date Indications Data Source(s) Clinical summary transmitted to agustina roman provider electronically with reasonable certainty of receipt or receiving provider electronically through [facility] 02/06/2021 12:00:00 AM EDT - 02/06/2021 12:00:00 AM EDT J[facility] ([facility]) Transition in care medication list update 02/06/2021 12:00:00 AM EDT - 02/06/2021 12:00:00 AM EDT [facility] ([facility]) Prophylaxis Adult Prophylaxis Adult 02/06/2021 12:00:00 AM EDT [facility] ([facility]) Oral Hygiene/Arun Inst Oral Hygiene/Arun Inst 02/06/2021 12:00:00 AM EDT J[facility] ([facility]) Nutritional Counseling Nutritional Counseling 02/06/2021 12:00:00 A M EDT [facility] ([facility]) Prophylaxis Adult Prophylaxis Adult 07/30/2020 12:00:00 AM EST [facility] ([facility]) Nutritional Counseling Nutritional Counseling 07/30/2020 12:00:00 A M EST [facility] ([facility]) Oral Hygiene/Arun Inst Oral Hygiene/Arun Inst 07/30/2020 12:00:00 AM EST [facility] ([facility]) Periodontal Charting Periodontal Charting 07/30/2020 12:00:00 AM ES T [facility] ([facility]) Bitewing - 4 radiographic images Bitewing - 4 radiographic i mages 07/30/2020 12:00:00 AM EST [facility] ([facility]) Results ID Date Data Source [id number] 02/12/2021 12:00:00 AM EDT [facility] Name Value Range Interpretation Code Description Data Jordyn rce(s) Supporting Document(s) PCR NEGATIVE [facility] This lab was ordered by [facility] and reported by [facility]. ID Date Data Source [id number] 07/04/2020 12:00:00 AM EST [facility] Name Value Range Interpretation Code Description Data Jordyn rce(s) Supporting Document(s) SARS coronavirus 2 Ag Negative [facility] This lab was ordered by [facility] and reported by [facility]. ID Date Data Source [id number] 05/05/2020 10:54:00 AM EST [facility] [address] [place] [address] PHONE: [phone] FAX: [phone] Name .................. : JEAN PAUL Moore Acct Number.................. : [id number] ROOM. ................. : MR Number ................... : [id number] Stay type ............. : O/P Discharge Date......... ... : Admit Date ......... : Admit Phys .................... : GREEN JENNIFER Date of ....... : 2000 Family Phys ................... : NO PCP Phone .................. : [phone] Age ................................ : 19 Film# .................. .:[id number] Sex ................................. : F Unsigned transcriptions are preliminary reports and do not represent a medical or legal document PELVIC [id number] COMPLETE:04/30/20 20:22 ADB [id number] (REASON FOR PELVIS: MIRENA IN PLACE PELVIC [...] Copy for: ANKIT DAMON Copy for: Yamileth [facility] Page 1 of 1 Name Value Range Interpretation Code Description Data Jordyn rce(s) Supporting Document(s) Procedure Social History Code Duration Value Status Description Data Source(s ) Smoking 02/06/2021 01:15:00 PM EDT Never smoked tobacco (findi ng) completed Never smoked tobacco (finding) [place] ([facility]) Smoking 07/30/2020 03:27:40 PM EST Never smoked tobacco (findi ng) completed Never smoked tobacco (finding) [place] ([facility]) Vital Signs ID Date Data Source UNK Name Value Range Interpretation Code Description Data Source(s) Heart rate 78 /min 78 /min [facility]) Systolic blood pressure 110 mm[Hg] 110 mm[Hg] [facility] Respiratory rate 16 /min 16 /min [facility] ( [facility]) Diastolic blood pressure 74 mm[Hg] 74 mm[Hg] [facility] ([facility]) Oxygen saturation in Arterial blood by Pulse oximetry 99 % 99 % [facility] ([facility]) Body temperature 98.6 [degF] 98.6 [degF] [facility] ([facility]) Body weight 195.00 [lb_av] 195.00 [lb_av] MEDEN T ([facility]) Body height 64 [in_i] 64 [in_i] [facility] ([facility]) 5'4" Body mass index (BMI) [Ratio] 33.5 kg/m2 33.5 k g/m2 [facility])
[2021-05-10 16:08] LABS: BASO % 0.5 % (0.0-1.0); EOS # 0.2 10^3/uL (0.0-0.5); EOS % 2.1 % (0.0-3.0); HEMOGLOBIN 13.6 g/dl (12.0-15.5); LYMPH # 2.6 10^3/uL (1.5-5.0); LYMPH % 31.9 % (24.0-44.0); MEAN CORPUSCULAR HEMOGLOBIN 30.3 pg (27.0-33.0); MEAN CORPUSCULAR HGB CONC 32.4 g/dl (32.0-36.5); MEAN CORPUSCULAR VOLUME 93.5 fl (80.0-96.0); MONO # 0.6 10^3/uL (0.0-0.8); MONO % 7.7 % (2.0-8.0); NEUTROPHILS # 4.7 10^3/uL (1.5-8.5); NEUTROPHILS % 57.6 % (36.0-66.0); PLATELET COUNT, AUTOMATED 264 10^3/uL (150-450); RED BLOOD COUNT 4.49 10^6/uL (4.00-5.40); WHITE BLOOD COUNT 8.1 10^3/uL (4.0-10.0)
[2021-05-10 16:37] LABS: ALBUMIN 3.7 GM/DL (3.2-5.2); ALT/SGPT 28 U/L (12-78); BILIRUBIN,DIRECT 0.1 MG/DL (0.0-0.2); BILIRUBIN,TOTAL 0.4 MG/DL (0.2-1.0); BLOOD UREA NITROGEN 10 MG/DL (7-18); CARBON DIOXIDE LEVEL 28 MEQ/L (21-32); CHLORIDE LEVEL 106 MEQ/L (98-107); CREATININE FOR GFR 0.75 MG/DL (0.55-1.30); GLOMERULAR FILTRATION RATE > 60.0 (>60); GLUCOSE, FASTING 78 MG/DL (70-100); HCG, SERUM QUANTITATIVE < 1.0 MIU/ML; LIPASE 125 U/L (73-393); POTASSIUM SERUM 4.1 MEQ/L (3.5-5.1); SODIUM LEVEL 140 MEQ/L (136-145); TOTAL PROTEIN 7.4 GM/DL (6.4-8.2)
[2021-05-10 17:56] VITALS: BP 112/61
== END 2021-05-10 17:57 | disposition home or self-care (01) ==
LOC: M ED 13:46
DX: R05.9 Cough, unspecified (principal); R51.9 Headache, unspecified; R09.81 Nasal congestion; Z79.3 Long term (current) use of hormonal contraceptives; Z88.7 Allergy status to serum and vaccine
CPT/HCPCS: 36415; 80048; 80076; 83690; 84702; 85025; 99284; U0003

== ENCOUNTER → 2021-12-15 | Outpatient (REF) ==
[~2021-12-15] MED LIST changes: +VIEN1TAB PO
== END ==
LOC: M EMP 07:51
PROVIDERS: ATTEND Family Medicine
DX: Z11.52 Encounter for screening for COVID-19 (principal)

== ENCOUNTER 2022-01-03 11:21 | Emergency (ER) | payer BC, MEDICAID ==
[~2022-01-03] VITALS: Ht 162.6 cm; Wt 75.5 kg
[2022-01-03] MEDS ORDERED: ETON68IM SC (11:29)
[2022-01-03] MEDS ORDERED: IBUP200C25 PO (11:29)
[2022-01-03 12:55] VITALS: BP 120/65
== END 2022-01-03 12:55 | disposition home or self-care (01) ==
LOC: M ED 11:21
DX: S99.921A Unspecified injury of right foot, initial encounter (principal); W23.0XXA Caught, crushed, jammed, or pinched between moving objects, initial encounter; Z79.3 Long term (current) use of hormonal contraceptives; Z88.8 Allergy status to other drugs, medicaments and biological substances